=== PATIENT | female | born 1950 | race Caucasian/White ===

== ENCOUNTER 2016-12-29 19:43 | Emergency (ER) | payer MEDICARE, BC ==
[2016-12-29] MEDS ORDERED: Diltiazem 25 MG/5 ML SDV IVPUSH ONE (19:54)
[2016-12-29] MEDS ORDERED: Nitroglycerin 0.4 MG Tab.SL ONE (20:01)
[2016-12-29] MEDS ORDERED: Nitroglycerin 0.4 MG Tab.SL SL ONE (20:02)
[2016-12-29] MEDS ORDERED: Aspirin 81 MG Tab.Chew PO ONE (20:04)
[2016-12-29] MEDS ORDERED: Aspirin 81 MG Tab.Chew ONE (20:06)
[2016-12-29 20:16] LABS: CHLORIDE,CL 105 mmol/L (101-111); SODIUM,NA 142 mmol/L (135-145)
[2016-12-29] MEDS ORDERED: Ondansetron 4 MG/2 ML SDV IV ONE (20:16)
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
[2016-12-29] MEDS ORDERED: Iopamidol 755 Mg/ML 100 ML Bottle IVPUSH ONE (22:25)
[2016-12-29 22:26] VITALS: BP 157/67
--- NOTE | 2016-12-30 12:05 | EKG ---
12/29/2016 - LISA JEFFRIES - TIME: 19:56 p.m. EKG per my reading shows sinus rhythm with PVCs with LVH. [facility] /[id number]
--- NOTE | 2017-01-20 12:53 | EKG ---
12/29/2016 - LISA JEFFRIES - TIME: 8:33 p.m. EKG per my reading shows sinus rhythm. No acute ST changes. [facility] /[id number]
--- NOTE | 2017-01-20 12:53 | EKG ---
12/29/2016 - LISA JEFFRIES - TIME: 7:56 p.m. EKG per my reading shows sinus rhythm with PVC. No acute ST changes. [facility] /[id number]
== END 2016-12-29 23:55 ==
LOC: EDBD → DL.ED 19:43
DX: I63.9 Cerebral infarction, unspecified (principal); J45.909 Unspecified asthma, uncomplicated
CPT/HCPCS: 36415; 70450; 70460; 70491; 71010; 71260; 80053; 81001; 82962; 83735; 83880; 84484; 85025; 85379; 85610; 93005; 93010; 96374; 96375; 99284; 99285; A9270; J2405; Q9967; J3490